=== PATIENT | male | born 1975 | race Caucasian/White ===

== ENCOUNTER 2020-01-19 15:21 | Inpatient (IN) | payer OTHER ==
[~2020-01-19 15:21] MED LIST: Iopamidol-370 76% 500 ML 1 ML ONE
[2020-01-19] MEDS ORDERED: cefTRIAXone\\ROCEPHIN 2 GM VIAL ONE (15:47)
[2020-01-19] MEDS ORDERED: Acetaminophen 500 MG TAB ONE (15:47)
--- NOTE | 2020-01-19 15:58 | RAD ---
PORTABLE CHEST: 01/19/20 PROVIDED CLINICAL HISTORY: Fever. FINDINGS: Cardiac and mediastinal silhouette is within normal limits. Consolidation is noted at the right lung apex. The left lung appears clear. There is no pleural fluid or pneumothorax apparent. IMPRESSION: Right upper lung zone consolidation, compatible with pneumonia. Follow-up is recommended. POS: ALEX
[2020-01-19 16:01] LABS: Mean Corpuscular HGB CONC 33.8 g/dL (32.0-36.0); Mean Corpuscular Hemoglobin 31.2 pg (27.0-31.0); Mean Corpuscular Volume 92.3 fL (78.0-98.0); Mean Platelet Volume 7.1 fL (7.4-10.4); Platelet Count 425 thou/uL (130-400); RBC Distribution Width 11.3 % (11.5-14.5); Red Blood Cell (RBC) Count 3.84 mill/uL (4.70-6.10); White Blood Cell (WBC) Count 21.8 thou/uL (4.8-10.8)
[2020-01-19 16:19] LABS: ALT (SGPT) 50 U/L (8-55); AST (SGOT) 37 U/L (5-34); Albumin 3.5 g/dL (3.5-5.0); Alkaline Phosphatase 221 U/L (40-110); Anion Gap 18 mmol/L (10-20); BUN (Urea Nitrogen) 14 mg/dL (8.9-20.6); CK (CPK) 63 U/L (30-200); Calc. Creatinine Clearance 0 mL/min (70-130); Carbon Dioxide 23 mmol/L (22-29); Chloride 96 mmol/L (98-107); Globulin 4.4 g/dL (2.4-3.5); Glucose 116 mg/dL (70-105); Lipase 18 U/L (8-78); Potassium 3.1 mmol/L (3.5-5.1); Protein, Total 7.9 g/dL (6.0-8.3); Sodium 134 mmol/L (136-145)
[2020-01-19 16:22] LABS: Band 16 % (5-11); Lymphocytes 4 % (21-51); MDiff Complete? YES; Monocytes 13 % (0-10); Neutrophil 67 % (42-75); Platelet Morphology Comment Appears Increased; Polychromasia SLIGHT = 2-3 cells (100X) (0-2/hpf); Toxic Granulation SLIGHT; Vacuoles SLIGHT
[2020-01-19] MEDS ORDERED: Potassium Chloride 20 MEQ TAB ONE (16:39)
[2020-01-19] MEDS ORDERED: Vancomycin 1 GM/200 ML BAG ONE (16:39)
--- NOTE | 2020-01-19 17:29 | CT ---
CT PULMONARY ANGIOGRAM WITH IV CONTRAST AND 3D MIP RECONSTRUCTIONS: 01/19/20 PROVIDED CLINICAL HISTORY: Cough. FINDINGS: There is a large cavitary process within the right upper lobe at the apex, measuring at least 9.4 cm in greatest transverse dimension and at least 7.3 cm in craniocaudal dimension. There is patchy surro unding ground glass opacity within the right upper lobe as well as in portions of the right middle lo be and right lower lobe. The left lung appears clear. There are multiple enlarged mediastinal and right hilar lymph nodes. There is no pleural fluid or pneumothorax apparent. The airway appears patent and of normal caliber. There is no evidence for central or segmental pulmonary embolus. The visualized portions of the upper abdomen appear unremarkable. The osseous structures demonstrate no concerning lytic or blastic lesion. IMPRESSION: 1. No evidence for central or segmental pulmonary embolus. 2. Cavitary mass within the right lung apex, infectious versus less likely malignant. Extensive surrounding ground glass opacity that may reflect hemorrhage or infectious pneumonitis. Patchy right middle lobe and right lower lobe air space disease that may reflect infectious pneumonitis. POS: ALEX
[2020-01-19] MEDS ORDERED: Bisacodyl 10 MG SUPP PR PRN (17:50)
[2020-01-19] MEDS ORDERED: Senokot S 8.6-50 MG TAB PO PRN (17:50)
[2020-01-19] MEDS ORDERED: Ondansetron PF 4 MG/2 ML Vial IVP PRN (17:50)
[2020-01-19] MEDS ORDERED: HYDROcodone/Acetaminophen 5/325 mg Tablet PO PRN (17:50)
[2020-01-19 18:16] LABS: Bilirubin Negative (Negative); Blood, Urine Negative (Negative); Clarity Clear (Clear); Glucose, Urine (Dipstick) Normal (Negative); Ketone, Urine Trace mg/dL (Negative); Leukocyte Negative Leu/uL (Negative); Nitrite Negative (Negative); Protein, Urine (Dipstick) 10 mg/dL (Neg-Trace); Specific Gravity, Urine 1.032 (1.002-1.036); Urobilinogen Normal mg/dL (Less than 2); pH, Urine 5.5 (5.0-9.0)
[2020-01-19] MEDS ORDERED: Azithromycin 500 MG VIAL ONE (18:23)
[2020-01-19 18:28] LABS: SARS-CoV-2 NAA Rapid Test Not Detected (NotDetected)
--- NOTE | 2020-01-19 18:31 | HP ---
REASON FOR ADMISSION: Right lung abscess. HISTORY OF PRESENTING ILLNESS: The patient gives history of having fever from last 11 days or so. This fever has been off and on with no particular relation to day or night. He also developed cough, which was initially dry from last 4 to 5 days. From yesterday, the patient started to have brown colored, foul smelling rotten egg smell sputum per patient. He has also had loss of appetite from last 3 days and has not been able to eat or drink much. Has no complaints of chest pain or palpitation. No prior history of lung infections as such. 25 years back, the patient has had pulmonary bleb rupture with subcutaneous emphysema and has had serial CAT scans x2 on a yearly basis. He was told he had asthma and likely bleb ruptured with a flare-up of his asthma. This was 25 years back. He has not had any surgical procedures for the same. He does not know if he is exposed to COVID, but he is a machine operator general for house remodeling. He has been to [place] more than four years ago. Has not been to detention or fdc facilities or residential in the past. Does not have any pets. PAST MEDICAL AND SURGICAL HISTORY: History of asthma, which is very mild and rarely uses his albuterol rescue inhaler. He has had right collarbone surgery when he was a child. CURRENT MEDICATIONS: Albuterol inhaler nebulizer p.r.n. ALLERGIES: TO ASPIRIN. PERSONAL HISTORY: Does not abuse alcohol or drugs. No history of smoking. Works as a machine operator general for house remodeling. FAMILY HISTORY: Both parents are living. Father was diagnosed with lung cancer 3 years back and he has had a lower lobe lobectomy done. He is apparently healthy now. Mother is healthy. The patient lives with his . CODE STATUS: Full. Power of senior attorney is his . REVIEW OF SYSTEMS: CONSTITUTIONAL: Negative for weight loss or gain, ability to conduct usual activities. SKIN: Negative for rash, itching. EYES: Negative for double vision, pain. ENT/MOUTH: Negative for nose bleeding, neck stiffness, pain, tenderness. CARDIOVASCULAR: Negative for palpitations, dyspnea on exertion, orthopnea. RESPIRATORY: Negative for shortness of breath, wheezing, cough, hemoptysis, fever or night sweats. GASTROINTESTINAL: Negative for poor appetite, abdominal pain, heartburn, nausea, vomiting, constipation, or diarrhea. GENITOURINARY: Negative for urgency, frequency, dysuria, nocturia. MUSCULOSKELETAL: Negative for pain, swelling. NEUROLOGIC/PSYCHIATRIC: Negative for anxiety, depression. ALLERGY/IMMUNOLOGIC: Negative for skin rash, bleeding tendency. PHYSICAL EXAMINATION: GENERAL: The patient is a 44-year-old male, who is currently not in any acute distress. VITAL SIGNS: Blood pressure 106/70, pulse 110 per minute, respiratory rate 18 per minute, temperature 99 degrees Fahrenheit, saturating 94% on room air. NECK: Supple. No elevated JVD. HEENT: Eyes; extraocular muscles intact. Pupils reacting to light. Oral cavity, mucous membranes are dry. No exudates or congestion. CARDIOVASCULAR SYSTEM: S1, S2 heard. Tachycardic. No murmur. RESPIRATORY SYSTEM: Air entry 1+ bilateral. Scattered rhonchi plus bilateral. Occasional wheezes plus bilateral. ABDOMEN: Soft. Bowel sounds heard. No tenderness, rigidity, or guarding. EXTREMITIES: No peripheral edema or calf tenderness. VASCULAR SYSTEM: Peripheral pulses 1+ bilateral. No ischemic ulcerations or gangrene. CENTRAL NERVOUS SYSTEM: No gross focal deficits noted. The patient is alert, awake, oriented well. PSYCHIATRIC SYSTEM: The patient's mood is euthymic. No hallucinations or delusions. LABORATORY DATA: CT angio of the chest done shows a large cavity in the right upper lobe measuring 9.4 x 7.3 cm and there is patchy surrounding ground-glass opacity seen in the right upper lobe and right middle lobe and lower lobe as well on the right side. No evidence of PE. White count is 21, H and H 12 and 35, platelet count 425 with 67% neutrophils, 16% bands. MCV is 92. D-dimer is 3.0. Potassium 3.1, serum bicarb 23, BUN 14, creatinine 1.0, serum glucose 116, AST 37, ALT 50, alkaline phosphatase 221, total bilirubin 1.0. BNP 30. Albumin is 3.5. Lipase 18. CLINICAL IMPRESSION AND PLAN: Patient will be admitted to medical floor for right lung abscess with sepsis. Blood cultures have been obtained in the ER. We will obtain sputum culture. He will be on cefepime, Levaquin, and vancomycin along with DuoNeb. Dr. Larson has been consulted by Dr. Choi in the ER. He has had a symptoms of cough and fever for last 11 days, which got worse from last 2 days with foul smelling sputum from yesterday evening. We will also obtain an echo, covid PCR. We will gently hydrate him for a total of 2 L and re-evaluate if needed. We will continue to closely monitor him on medical floor. Job ID: [id number] [facility]
[2020-01-19 19:39] LABS: Alcohol Less than 10 mg/dL (Less than 10); Salicylate Less than 8.0 mg/dL (15.0-30.0)
[2020-01-19] MEDS: Sodium Chloride 0.9% 1,000 ML IV SCH (19:41)
[2020-01-19] MEDS ORDERED: Famotidine 20 MG TAB ONE (20:20)
[2020-01-19] MEDS: Famotidine 20 MG TAB PO SCH (20:32)
[2020-01-19] MEDS ORDERED: Vancomycin HCl 1 GM in Sodium Chloride 0.9% 250 ML 300 ML IVPB SCH (21:00)
[2020-01-19] MEDS: Cefepime 1 GM in Sodium Chloride 0.9% 100 ML IVPB SCH (21:38)
[2020-01-19] MEDS ORDERED: Cefepime 1 GM VIAL ONE (21:39)
[2020-01-19 21:40] LABS: HBSAg Index 0.22 S/CO (0-0.99); Hep B Surf Ag Non-Reactive S/CO (NonReactive); Hep C IgG Ab Non-Reactive (NonReactive); Hep C Index 0.07 S/CO (0-0.79)
[2020-01-19 21:41] LABS: Hep A IgM AB Non-Reactive (NonReactive); Hep A IgM S/CO 0.21 S/CO (0-0.79)
[2020-01-19 21:47] LABS: HBCM Index 0.06 S/CO (0-0.79); Hepatitis B Core IgM Abs Non-Reactive (NonReactive)
[2020-01-19 21:52] LABS: HIV (1/2) Antibody/Antigen Non-Reactive (NonReactive); HIV 1/2 INDEX 0.11 S/CO (<1.00)
[2020-01-19 22:29] VITALS: BMI 29.9
[2020-01-19 22:52] LABS: Amphetamine Not Detected (NotDetected); Barbiturates Screen Not Detected (NotDetected); Benzodiazepine Screen Not Detected (NotDetected); Cocaine Metabolite Screen Not Detected (NotDetected); Medtox Control Line Valid? VALID (VALID); Medtox Reader # READER 4; Methadone Not Detected (NotDetected); Methamphetamine Not Detected (NotDetected); Opiate Screen Not Detected (NotDetected); Oxycodone Screen Not Detected (NotDetected); Phencyclidine (PCP) Not Detected (NotDetected); THC/Cannabinoid Screen Not Detected (NotDetected); Tricyclic Screen Not Detected (NotDetected)
[2020-01-19 22:58] LABS: Legionella Urinary Ag Negative (Negative); Strep pneumo Urine Ag NEGATIVE (NEGATIVE)
[2020-01-20] MEDS ORDERED: Vancomycin 1.5 GRAM/300 ML BAG 1.5 GM in Premix Bag 1 BAG IVPB SCH (05:00)
[2020-01-20] MEDS: Sodium Chloride 0.9% 1,000 ML IV SCH (05:32)
[2020-01-20] MEDS: Acetaminophen 325 MG TAB PO PRN ×2 (06:42→16:39)
[2020-01-20 06:57] LABS: #Eosinphils 0.1 thou/uL (0.0-0.7); #Monocytes 1.6 thou/uL (0.11-0.59); #Neutrophils 14.6 thou/uL (1.40-6.50); %Basophils 0.1 % (0.0-1.0); %Eosinophils 0.3 % (0.0-10.0); %Lymphocytes 5.9 % (21.0-51.0); %Monocytes 9.3 % (0.0-10.0); %Neutrophils 84.5 % (42.0-75.0); Hemoglobin 10.6 g/dL (14.0-18.0); Mean Corpuscular HGB CONC 33.5 g/dL (32.0-36.0); Mean Corpuscular Hemoglobin 31.3 pg (27.0-31.0); Mean Corpuscular Volume 93.4 fL (78.0-98.0); Platelet Count 362 thou/uL (130-400); RBC Distribution Width 11.3 % (11.5-14.5); Red Blood Cell (RBC) Count 3.39 mill/uL (4.70-6.10); White Blood Cell (WBC) Count 17.3 thou/uL (4.8-10.8)
[2020-01-20 07:18] LABS: ALT (SGPT) 37 U/L (8-55); AST (SGOT) 26 U/L (5-34); Albumin 2.8 g/dL (3.5-5.0); Alkaline Phosphatase 164 U/L (40-110); Anion Gap 15 mmol/L (10-20); BUN (Urea Nitrogen) 9 mg/dL (8.9-20.6); Bilirubin, Total 0.6 mg/dL (0.2-1.2); Calc. Creatinine Clearance 163 mL/min (70-130); Calcium 7.9 mg/dL (7.8-10.44); Carbon Dioxide 20 mmol/L (22-29); Chloride 102 mmol/L (98-107); Globulin 3.5 g/dL (2.4-3.5); Glucose 116 mg/dL (70-105); Potassium 3.4 mmol/L (3.5-5.1); Protein, Total 6.3 g/dL (6.0-8.3); Sodium 134 mmol/L (136-145)
[2020-01-20] MEDS: Cefepime 1 GM in Sodium Chloride 0.9% 100 ML IVPB SCH (07:49)
[2020-01-20] MEDS: Famotidine 20 MG TAB PO SCH ×2 (07:50→19:47)
[2020-01-20] MEDS: Enoxaparin Sodium 40 MG/0.4 ML SYRINGE SC SCH (07:50)
--- NOTE | 2020-01-20 14:22 | CON ---
DATE OF CONSULTATION: 01/20/2020 HISTORY OF PRESENT ILLNESS: Mr. Del Angel is a very pleasant 44-year-old male. He says he has been feeling bad for least 2 weeks. He has had bad breath and a nasty taste in his mouth, he has noticed as well when he coughs up sputum. He has a long history of awakening at night with bile or gastric contents in his mouth, making him jump up to run into the bathroom to spit it out. He says this only happens every 6 to 8 months, but it does happen. He is unaware if this is happening intermittently during the sleep as expected. He does not elevate the head of his bed. He has been taking Prilosec and says a lot of his painful reflux issues got better when he started taking Prilosec on a daily basis. He has never been scoped, but his mother and father both have issues with esophageal strictures. He is diagnosed with a necrotizing upper lobe pneumonia. I was consulted to assist in his management. PAST MEDICAL HISTORY: Otherwise, unremarkable. He is a nonsmoker and nondrinker. He has had asthma since he was young. Twenty-five years ago, he tells me he was hospitalized in [place] for a week. It sounds like he had a pneumomediastinum. He was seen in the ER for asthma, sent home, and then called back the next day and watched for a week with serial x-rays. He had subcu air in his neck. He is followed with serial CT's for some reason. FAMILY HISTORY: Negative for lung disease, otherwise in early age. His father was diagnosed with lung cancer and had a lower lobectomy for that. His father quit smoking over 30 years ago. REVIEW OF SYSTEMS: Otherwise, negative. PHYSICAL EXAMINATION: GENERAL: He is a very pleasant gentleman, coughing frequently. His is at bedside. VITAL SIGNS: His temp since he has been in the hospital has been not higher than 99.2. HEENT: Pupils are equal. Sclerae are anicteric. NECK: Supple. LUNGS: Clear and distant. HEART: Regular rhythm. ABDOMEN: Soft and nontender. EXTREMITIES: Without clubbing, cyanosis, or edema. Oximetry is 95% on room air. IMPRESSION: Necrotizing upper lobe pneumonia, most likely related to nocturnal reflux and aspiration. I suspect this is predominantly anaerobes and gram negatives. Once his blood cultures come back negative, we can simplify his antimicrobial therapy. He will probably need to be in the hospital for least 3 days, getting IV antimicrobial therapy. Vancomycin can be discontinued as this is extremely unlikely to be a staphylococcal process. It would not be unreasonable to rule out a stricture while he is here. I will discuss with Gastroenterology in the morning. There is no reason to consult them on weekend. This is a 70 min consult with greater than 50% of the time spent on the unit with coordination of care. Job ID: [id number] [facility]GAN
--- NOTE | 2020-01-20 15:36 | PDOC.HOSPP ---
- Subjective Encounter Date: 01/20/20 Encounter Time: 15:35 Subjective: f/u for RUL PNA/abscess likely due to GERD receiving Cefepime/Levaquin and remaining on RA. - Objective Vital Signs & Weight: Vital Signs (12 hours) Temp Pulse Resp BP BP Pulse Ox 01/20/20 14:49 103 H 20 93 L 01/20/20 12:00 98.2 F 97 18 112/72 97 01/20/20 08:00 95 01/20/20 07:56 99.2 F 102 H 16 114/70 95 01/20/20 07:48 104 H 20 95 01/20/20 04:16 99.2 F 117 H 20 120/70 92 L Weight Weight 221 lb 2 oz I&O: 01/19/20 01/20/20 01/21/20 06:59 06:59 06:59 Intake Total 1280 Balance 1280 Result Diagrams: 01/20/20 06:27 01/20/20 06:27 Additional Labs: Microbiology 01/19/20 Unknown Nasopharyngeal swab Respiratory Virus Panel (PCR) - Final 01/19/20 17:15 Nasal swab Influenza Types A,B Direct EIA - Final 01/20/20 05:00 Sputum Respiratory Culture - Preliminary 01/19/20 15:42 Venous blood - Right Arm Blood Culture - Preliminary Specimen has been received and culture in progress. No Growth to date. 01/19/20 15:24 Venous blood - Left Hand Blood Culture - Preliminary Specimen has been received and culture in progress. No Growth to date. Laboratory Tests 01/19/20 01/19/20 01/19/20 15:42 15:42 15:42 WBC 21.8 H Hgb 12.0 L Plt Count 425 H Band Neuts % (Manual) 16 H D-Dimer Sodium 134 L Potassium 3.1 L B-Natriuretic Peptide 30.3 Lipase 18 Hepatitis A IgM Ab Hep Bs Antigen Hep B Core IgM Ab Hepatitis C Antibody HIV 1&2 Antigen & Ab Ur L.pneumophila Ag SARS-CoV-2 Rap RNA(RT-PCR) Ur Strep pneumoniae Ag 01/19/20 01/19/20 01/19/20 15:42 17:15 17:42 WBC Hgb Plt Count Band Neuts % (Manual) D-Dimer 3.06 H Sodium Potassium B-Natriuretic Peptide Lipase Hepatitis A IgM Ab Hep Bs Antigen Hep B Core IgM Ab Hepatitis C Antibody HIV 1&2 Antigen & Ab Ur L.pneumophila Ag Negative SARS-CoV-2 Rap RNA(RT-PCR) Not Detected Ur Strep pneumoniae Ag NEGATIVE 01/19/20 19:07 WBC Hgb Plt Count Band Neuts % (Manual) D-Dimer Sodium Potassium B-Natriuretic Peptide Lipase Hepatitis A IgM Ab Non-Reactive Hep Bs Antigen Non-Reactive Hep B Core IgM Ab Non-Reactive Hepatitis C Antibody Non-Reactive HIV 1&2 Antigen & Ab Non-Reactive Ur L.pneumophila Ag SARS-CoV-2 Rap RNA(RT-PCR) Ur Strep pneumoniae Ag Radiology Reviewed by me: Yes (CTA chest - RUL cavitary process/consolidation) Hospitalist ROS - Medication Medications: Active Medications Generic Name Dose Route Start Last Admin Trade Name Freq PRN Reason Stop Dose Admin Acetaminophen 650 mg 01/19/20 17:50 01/20/20 06:42 Acetaminophen 325 Mg Tab PO 650 mg Q4H PRN Administration Headache/Fever/Mild Pain (1-3) Albuterol/Ipratropium 3 ml 01/19/20 19:00 01/20/20 14:49 Ipratropium/Albuterol Sulfate 3 Ml Neb NEB 3 ml [id number] KATT Administration Enoxaparin Sodium 40 mg 01/20/20 09:00 01/20/20 07:50 Enoxaparin Sodium 40 Mg/0.4 Ml Syringe SC 40 mg 0900 KATT Administration Famotidine 20 mg 01/19/20 21:00 01/20/20 07:50 Famotidine 20 Mg Tab PO 20 mg BID KATT Administration Cefepime HCl 1 gm/ Sodium 100 mls @ 200 mls/hr 01/19/20 21:00 01/20/20 07:49 Chloride IVPB 100 mls Q12HR KATT Administration Levofloxacin 500 mg/ Device 100 mls @ 100 mls/hr 01/19/20 18:00 01/19/20 23:03 IVPB Not Given Q24HR KATT - Exam General Appearance: NAD, awake alert Eye: PERRL, anicteric sclera ENT: normocephalic atraumatic, no oropharyngeal lesions Neck: supple, symmetric, no JVD, no thyromegaly, no lymphadenopathy Heart: RRR, no murmur, no gallops, no rubs, normal peripheral pulses Heart - other findings: S1, S2 Respiratory: no wheezes, normal chest expansion, no tachypnea Respiratory - other findings: coarse sounds in R field, diminised in R base Gastrointestinal: soft, non-tender, non-distended, normal bowel sounds, no palpable masses Extremities: no cyanosis, no clubbing, no edema Skin: normal turgor, no lesions, no rashes Neurological: cranial nerve grossly intact, no new deficit Musculoskeletal: normal tone, normal strength, no muscle wasting Psychiatric: normal affect, A&O x 3 Hosp A/P (1) Cavitary pneumonia Code(s): J18.9 - PNEUMONIA, UNSPECIFIED ORGANISM; J98.4 - OTHER DISORDERS OF LUNG Status: Acute Plan: Likely component of reflux-associated PNA now with abscess RUL, continue Cefepime/Levaquin, likely will need EGD and potential bronchoscopy (2) Sepsis due to pneumonia Code(s): J18.9 - PNEUMONIA, UNSPECIFIED ORGANISM; A41.9 - SEPSIS, UNSPECIFIED ORGANISM Status: Acute Plan: See above for antimicrobial regimen, continue general sepsis protocol (3) Hyponatremia Code(s): E87.1 - HYPO-OSMOLALITY AND HYPONATREMIA Status: Acute Plan: Likely due to #1, encourage increased po intake and regular diet (4) Hypokalemia Code(s): E87.6 - HYPOKALEMIA Status: Acute Plan: KCL supplementation, serial K+ monitoring - Plan continue antibiotics, social worker delinquency prevention, respiratory therapy, DVT proph w/SCDs Continue Cefepime/Levaquin General pulmonary supportive mgmt Appreciated Pulmonolgy assistance Likely will need EGD, potential bronchoscopy Await final sputum cx results AM lab: CMP, CBC
[2020-01-20] MEDS: Cefepime 2 GM in Sodium Chloride 0.9% 100 ML IVPB SCH (19:47)
[2020-01-21] MEDS: Acetaminophen 325 MG TAB PO PRN ×2 (00:25→11:45)
[2020-01-21 06:45] LABS: Band 20 % (5-11); Hemoglobin 11.2 g/dL (14.0-18.0); Lymphocytes 7 % (21-51); MDiff Complete? YES; Mean Corpuscular HGB CONC 33.3 g/dL (32.0-36.0); Mean Corpuscular Hemoglobin 31.2 pg (27.0-31.0); Mean Corpuscular Volume 93.5 fL (78.0-98.0); Mean Platelet Volume 7.2 fL (7.4-10.4); Metamyelocyte 2 % (0-0); Monocytes 6 % (0-10); Neutrophil 65 % (42-75); Platelet Count 431 thou/uL (130-400); Platelet Morphology Comment Appears Increased; RBC Distribution Width 11.4 % (11.5-14.5); Red Blood Cell (RBC) Count 3.59 mill/uL (4.70-6.10); White Blood Cell (WBC) Count 20.9 thou/uL (4.8-10.8)
[2020-01-21 06:49] LABS: ALT (SGPT) 40 U/L (8-55); AST (SGOT) 30 U/L (5-34); Albumin 3.1 g/dL (3.5-5.0); Alkaline Phosphatase 176 U/L (40-110); Anion Gap 18 mmol/L (10-20); BUN (Urea Nitrogen) 7 mg/dL (8.9-20.6); Bilirubin, Total 0.6 mg/dL (0.2-1.2); Calc. Creatinine Clearance 168 mL/min (70-130); Calcium 8.5 mg/dL (7.8-10.44); Carbon Dioxide 20 mmol/L (22-29); Chloride 100 mmol/L (98-107); Globulin 4.1 g/dL (2.4-3.5); Glucose 103 mg/dL (70-105); Potassium 3.1 mmol/L (3.5-5.1); Protein, Total 7.2 g/dL (6.0-8.3); Sodium 135 mmol/L (136-145)
[2020-01-21] MEDS: Enoxaparin Sodium 40 MG/0.4 ML SYRINGE SC SCH (08:14)
[2020-01-21] MEDS: Guaifenesin DM 100-10/5 ML UDCUP PO PRN (08:14)
[2020-01-21] MEDS: Famotidine 20 MG TAB PO SCH (08:14)
[2020-01-21] MEDS: Cefepime 2 GM in Sodium Chloride 0.9% 100 ML IVPB SCH ×2 (08:14→21:30)
[2020-01-21] MEDS ORDERED: predniSONE 20 MG TAB PO SCH (12:30)
--- NOTE | 2020-01-21 12:50 | PRG ---
DATE OF SERVICE: 01/21/2020 OBJECTIVE: VITAL SIGNS: The patient is afebrile. Temperature was 100 today, was 103.1 yesterday afternoon at 5:00; oximetry is 96% to 97% on room air; blood pressure 126/72. LUNGS: He is not wheezing. HEART: Regular rhythm. ABDOMEN: Soft. IMPRESSION AND PLAN: Lung abscess, likely created by nocturnal aspiration. He has a significant problem with reflux and sleeps on his right side, which explained in the right upper lobe infiltrate. I would also explain his foul breath and bad taste associated with that. I would expect to be febrile for several days. We will continue IV antibiotics until he is afebrile, then probably switch to Augmentin. He is unsure if he is allergic to aspirin, but his mother told him when he was young with his asthma, he should not take aspirin. Surprisingly, his asthma has not been active with this infection. Job ID: [id number]
--- NOTE | 2020-01-21 16:04 | PDOC.HOSPP ---
- Subjective Encounter Date: 01/21/20 Encounter Time: 16:00 Subjective: f/u for R lung abscess on current Cefepime. Feels weak and slept poorly overnight due to anxiety and illness. Tmax 103F. - Objective Vital Signs & Weight: Vital Signs (12 hours) Temp Pulse Resp BP Pulse Ox 01/21/20 14:02 101 H 18 96 01/21/20 11:33 100.0 F H 106 H 18 126/72 97 01/21/20 08:00 96 01/21/20 07:30 98.8 F 91 20 128/81 96 01/21/20 07:08 111 H 18 95 01/21/20 06:00 98 F Weight Weight 221 lb 2 oz I&O: 01/20/20 01/21/20 01/22/20 06:59 06:59 06:59 Intake Total 1280 3080 Output Total 650 Balance 1280 2430 Result Diagrams: 01/21/20 05:50 01/21/20 05:50 Additional Labs: Microbiology 01/19/20 Unknown Nasopharyngeal swab Respiratory Virus Panel (PCR) - Final 01/19/20 17:15 Nasal swab Influenza Types A,B Direct EIA - Final 01/20/20 05:00 Sputum Respiratory Culture - Preliminary 01/20/20 05:00 Sputum Respiratory Culture - Preliminary 01/19/20 15:42 Venous blood - Right Arm Blood Culture - Preliminary Specimen has been received and culture in progress. No Growth to date. 01/19/20 15:42 Venous blood - Right Arm Blood Culture - Preliminary NO GROWTH AT 48 HOURS 01/19/20 15:24 Venous blood - Left Hand Blood Culture - Preliminary Specimen has been received and culture in progress. No Growth to date. 01/19/20 15:24 Venous blood - Left Hand Blood Culture - Preliminary NO GROWTH AT 48 HOURS Laboratory Tests 01/19/20 01/19/20 01/19/20 15:42 15:42 15:42 WBC 21.8 H Hgb 12.0 L Plt Count 425 H Band Neuts % (Manual) 16 H D-Dimer Sodium 134 L Potassium 3.1 L B-Natriuretic Peptide 30.3 Lipase 18 Hepatitis A IgM Ab Hep Bs Antigen Hep B Core IgM Ab Hepatitis C Antibody HIV 1&2 Antigen & Ab Ur L.pneumophila Ag SARS-CoV-2 Rap RNA(RT-PCR) Ur Strep pneumoniae Ag 01/19/20 01/19/20 01/19/20 15:42 17:15 17:42 WBC Hgb Plt Count Band Neuts % (Manual) D-Dimer 3.06 H Sodium Potassium B-Natriuretic Peptide Lipase Hepatitis A IgM Ab Hep Bs Antigen Hep B Core IgM Ab Hepatitis C Antibody HIV 1&2 Antigen & Ab Ur L.pneumophila Ag Negative SARS-CoV-2 Rap RNA(RT-PCR) Not Detected Ur Strep pneumoniae Ag NEGATIVE 01/19/20 19:07 WBC Hgb Plt Count Band Neuts % (Manual) D-Dimer Sodium Potassium B-Natriuretic Peptide Lipase Hepatitis A IgM Ab Non-Reactive Hep Bs Antigen Non-Reactive Hep B Core IgM Ab Non-Reactive Hepatitis C Antibody Non-Reactive HIV 1&2 Antigen & Ab Non-Reactive Ur L.pneumophila Ag SARS-CoV-2 Rap RNA(RT-PCR) Ur Strep pneumoniae Ag Hospitalist ROS - Medication Medications: Active Medications Generic Name Dose Route Start Last Admin Trade Name Freq PRN Reason Stop Dose Admin Acetaminophen 650 mg 01/19/20 17:50 01/21/20 11:45 Acetaminophen 325 Mg Tab PO 650 mg Q4H PRN Administration Headache/Fever/Mild Pain (1-3) Albuterol/Ipratropium 3 ml 01/19/20 19:00 01/21/20 14:02 Ipratropium/Albuterol Sulfate 3 Ml Neb NEB 3 ml [id number] KATT Administration Enoxaparin Sodium 40 mg 01/20/20 09:00 01/21/20 08:14 Enoxaparin Sodium 40 Mg/0.4 Ml Syringe SC 40 mg 0900 KATT Administration Famotidine 20 mg 01/19/20 21:00 01/21/20 08:14 Famotidine 20 Mg Tab PO 20 mg BID KATT Administration Guaifenesin/Dextromethorphan 15 ml 01/19/20 17:50 01/21/20 08:14 Guaifenesin Dm 100-10/5 Ml Udcup PO 15 ml Q4H PRN Administration Cough Cefepime HCl 2 gm/ Sodium 100 mls @ 200 mls/hr 01/20/20 21:00 01/21/20 08:14 Chloride IVPB 100 mls Q12HR KATT Administration - Exam General Appearance: NAD, awake alert Eye: PERRL, anicteric sclera ENT: normocephalic atraumatic, no oropharyngeal lesions Neck: supple, symmetric, no JVD, no thyromegaly, no lymphadenopathy Heart: RRR, no murmur, no gallops, no rubs, normal peripheral pulses Respiratory: normal chest expansion, no tachypnea Respiratory - other findings: few wheezes of R lung field Gastrointestinal: soft, non-tender, non-distended, normal bowel sounds, no palpable masses Extremities: no cyanosis, no clubbing, no edema Skin: normal turgor, no lesions Neurological: cranial nerve grossly intact, no new deficit Musculoskeletal: normal tone, normal strength, no muscle wasting Psychiatric: normal affect, A&O x 3 Hosp A/P (1) Cavitary pneumonia Code(s): J18.9 - PNEUMONIA, UNSPECIFIED ORGANISM; J98.4 - OTHER DISORDERS OF LUNG Status: Acute Plan: Continue Cefepime, may need bronchoscopy if slow clinical improved, EGD pending in context of likely GERD component (2) Sepsis due to pneumonia Code(s): J18.9 - PNEUMONIA, UNSPECIFIED ORGANISM; A41.9 - SEPSIS, UNSPECIFIED ORGANISM Status: Acute Plan: Improved, continue IV Cefepime, IVF's (3) Hyponatremia Code(s): E87.1 - HYPO-OSMOLALITY AND HYPONATREMIA Status: Acute Plan: Slow improvement, continue low-volume IVF's (4) Hypokalemia Code(s): E87.6 - HYPOKALEMIA Status: Acute Plan: Mild, KCL 40meq BID, repeat K+ level in am (5) GERD (gastroesophageal reflux disease) Code(s): K21.9 - GASTRO-ESOPHAGEAL REFLUX DISEASE WITHOUT ESOPHAGITIS Status: Chronic Plan: Plan for EGD, start Protonix 40mg po daily - Plan plan discussed w/ family, continue antibiotics, secondary social studies teacher, out of bed/ambulate, DVT proph w/SCDs Continue Cefepime General pulmonary supportive mgmt Appreciated Pulmonolgy assistance Likely will need EGD, potential bronchoscopy Sputum cx showing normal niles KCL 40meq BID Add Mucinex DM BID AM lab: CMP, CBC
[2020-01-21] MEDS ORDERED: Potassium Chloride 20 MEQ TAB PO SCH (16:15)
[2020-01-21] MEDS: Saccharomyces boulardii 250 MG CAP PO SCH (16:55)
[2020-01-21] MEDS: Melatonin 3 MG TAB PO PRN (21:31)
[2020-01-21] MEDS: guaiFENesin/DM ER PO SCH (21:31)
[2020-01-22 06:45] LABS: #Eosinphils 0.1 thou/uL (0.0-0.7); #Lymphocytes 1.3 thou/uL (1.20-3.40); #Monocytes 1.3 thou/uL (0.11-0.59); #Neutrophils 14.4 thou/uL (1.40-6.50); %Basophils 0.1 % (0.0-1.0); %Eosinophils 0.4 % (0.0-10.0); %Lymphocytes 7.4 % (21.0-51.0); %Monocytes 7.7 % (0.0-10.0); %Neutrophils 84.4 % (42.0-75.0); Hemoglobin 10.5 g/dL (14.0-18.0); Mean Corpuscular HGB CONC 33.5 g/dL (32.0-36.0); Mean Corpuscular Hemoglobin 31.1 pg (27.0-31.0); Mean Corpuscular Volume 92.8 fL (78.0-98.0); Mean Platelet Volume 6.7 fL (7.4-10.4); Platelet Count 398 thou/uL (130-400); RBC Distribution Width 11.4 % (11.5-14.5); Red Blood Cell (RBC) Count 3.36 mill/uL (4.70-6.10)
[2020-01-22 07:09] LABS: ALT (SGPT) 62 U/L (8-55); AST (SGOT) 77 U/L (5-34); Alkaline Phosphatase 152 U/L (40-110); Anion Gap 13 mmol/L (10-20); BUN (Urea Nitrogen) 9 mg/dL (8.9-20.6); Bilirubin, Total 0.5 mg/dL (0.2-1.2); Calc. Creatinine Clearance 186 mL/min (70-130); Calcium 8.5 mg/dL (7.8-10.44); Carbon Dioxide 24 mmol/L (22-29); Chloride 103 mmol/L (98-107); Glucose 109 mg/dL (70-105); Potassium 3.4 mmol/L (3.5-5.1); Sodium 137 mmol/L (136-145)
[2020-01-22] MEDS: predniSONE 20 MG TAB PO SCH (08:28)
[2020-01-22] MEDS: Potassium Chloride 20 MEQ TAB PO SCH ×2 (08:28→16:57)
[2020-01-22] MEDS: Cefepime 2 GM in Sodium Chloride 0.9% 100 ML IVPB SCH ×2 (08:29→21:04)
[2020-01-22] MEDS: guaiFENesin/DM ER PO SCH ×2 (08:29→21:05)
[2020-01-22] MEDS: Enoxaparin Sodium 40 MG/0.4 ML SYRINGE SC SCH (09:35)
[2020-01-22] MEDS: Guaifenesin DM 100-10/5 ML UDCUP PO PRN ×2 (09:35→15:25)
--- NOTE | 2020-01-22 11:43 | PDOC.HOSPP ---
- Subjective Encounter Date: 01/22/20 Encounter Time: 11:40 Subjective: f/u for R lung abscess/cavitary region on current Cefepime/Prednisone. Suspicion for reflux and aspiration as underlying etiology. - Objective Vital Signs & Weight: Vital Signs (12 hours) Temp Pulse Resp BP BP Pulse Ox 01/22/20 11:05 99.3 F 94 20 120/77 94 L 01/22/20 08:00 93 L 01/22/20 07:36 98.5 F 94 20 115/73 93 L 01/22/20 07:33 94 14 95 01/22/20 00:24 95 12 01/21/20 23:57 98.8 F 95 20 115/74 93 L Weight Weight 221 lb 2 oz I&O: 01/21/20 01/22/20 01/23/20 06:59 06:59 06:59 Intake Total 3080 580 Output Total 650 Balance 2430 580 Result Diagrams: 01/22/20 06:30 01/22/20 06:30 Additional Labs: Microbiology 01/19/20 Unknown Nasopharyngeal swab Respiratory Virus Panel (PCR) - Final 01/19/20 17:15 Nasal swab Influenza Types A,B Direct EIA - Final 01/20/20 05:00 Sputum Respiratory Culture - Preliminary 01/20/20 05:00 Sputum Respiratory Culture - Preliminary 01/19/20 15:42 Venous blood - Right Arm Blood Culture - Preliminary Specimen has been received and culture in progress. No Growth to date. 01/19/20 15:42 Venous blood - Right Arm Blood Culture - Preliminary NO GROWTH AT 48 HOURS 01/19/20 15:24 Venous blood - Left Hand Blood Culture - Preliminary Specimen has been received and culture in pr ogress. No Growth to date. 01/19/20 15:24 Venous blood - Left Hand Blood Culture - Preliminary NO GROWTH AT 48 HOURS Laboratory Tests 01/19/20 01/19/20 01/19/20 15:42 15:42 15:42 WBC 21.8 H Hgb 12.0 L Plt Count 425 H Band Neuts % (Manual) 16 H D-Dimer Sodium 134 L Potassium 3.1 L B-Natriuretic Peptide 30.3 Lipase 18 Hepatitis A IgM Ab Hep Bs Antigen Hep B Core IgM Ab Hepatitis C Antibody HIV 1&2 Antigen & Ab Ur L.pneumophila Ag SARS-CoV-2 Rap RNA(RT-PCR) Ur Strep pneumoniae Ag 01/19/20 01/19/20 01/19/20 15:42 17:15 17:42 WBC Hgb Plt Count Band Neuts % (Manual) D-Dimer 3.06 H Sodium Potassium B-Natriuretic Peptide Lipase Hepatitis A IgM Ab Hep Bs Antigen Hep B Core IgM Ab Hepatitis C Antibody HIV 1&2 Antigen & Ab Ur L.pneumophila Ag Negative SARS-CoV-2 Rap RNA(RT-PCR) Not Detected Ur Strep pneumoniae Ag NEGATIVE 01/19/20 19:07 WBC Hgb Plt Count Band Neuts % (Manual) D-Dimer Sodium Potassium B-Natriuretic Peptide Lipase Hepatitis A IgM Ab Non-Reactive Hep Bs Antigen Non-Reactive Hep B Core IgM Ab Non-Reactive Hepatitis C Antibody Non-Reactive HIV 1&2 Antigen & Ab Non-Reactive Ur L.pneumophila Ag SARS-CoV-2 Rap RNA(RT-PCR) Ur Strep pneumoniae Ag Hospitalist ROS - Medication Medications: Active Medications Generic Name Dose Route Start Last Admin Trade Name Freq PRN Reason Stop Dose Admin Acetaminophen 650 mg 01/19/20 17:50 01/21/20 11:45 Acetaminophen 325 Mg Tab PO 650 mg Q4H PRN Administration Headache/Fever/Mild Pain (1-3) Albuterol/Ipratropium 3 ml 01/19/20 19:00 01/22/20 07:33 Ipratropium/Albuterol Sulfate 3 Ml Neb NEB 3 ml [id number] KATT Administration Enoxaparin Sodium 40 mg 01/20/20 09:00 01/22/20 09:35 Enoxaparin Sodium 40 Mg/0.4 Ml Syringe SC 40 mg 0900 KATT Administration Guaifenesin/Dextromethorphan 15 ml 01/19/20 17:50 01/22/20 09:35 Guaifenesin Dm 100-10/5 Ml Udcup PO 15 ml Q4H PRN Administration Cough Guaifenesin/Dextromethorphan 1 tab 01/21/20 21:00 01/22/20 08:29 Guaifenesin/Dm Er PO 1 tab Q12HR KATT Administration Cefepime HCl 2 gm/ Sodium 100 mls @ 200 mls/hr 01/20/20 21:00 01/22/20 08:29 Chloride IVPB 100 mls Q12HR KATT Administration Melatonin 9 mg 01/21/20 16:48 01/21/20 21:31 Melatonin 3 Mg Tab PO 9 mg HSPRN PRN Administration Insomnia Pantoprazole Sodium 40 mg 01/22/20 09:00 01/22/20 08:28 Pantoprazole 40 Mg Tab PO 40 mg DAILY KATT Administration Potassium Chloride 40 meq 01/22/20 08:00 01/22/20 08:28 Potassium Chloride 20 Meq Tab PO 40 meq BID-WM KATT Administration Prednisone 20 mg 01/22/20 08:00 01/22/20 08:28 Prednisone 20 Mg Tab PO 20 mg QAM-WM KATT Administration Saccharomyces Boulardii 250 mg 01/21/20 17:00 01/21/20 16:55 Saccharomyces Boulardii 250 Mg Cap PO 250 mg 1700 KATT Administration - Exam General Appearance: NAD, awake alert Eye: PERRL, anicteric sclera ENT: normocephalic atraumatic, no oropharyngeal lesions Neck: supple, symmetric, no JVD, no thyromegaly, no lymphadenopathy Heart: RRR, no murmur, no gallops, no rubs, normal peripheral pulses Heart - other findings: S1, S2 Respiratory: no tachypnea Respiratory - other findings: R-sided coarse sounds, few wheezes, diminished in base Gastrointestinal: soft, non-tender, non-distended, normal bowel sounds, no palpable masses Extremities: no cyanosis, no clubbing, no edema Skin: normal turgor Neurological: cranial nerve grossly intact, no new deficit Musculoskeletal: normal tone, normal strength, no muscle wasting Psychiatric: normal affect, A&O x 3 Hosp A/P (1) Cavitary pneumonia Code(s): J18.9 - PNEUMONIA, UNSPECIFIED ORGANISM; J98.4 - OTHER DISORDERS OF LUNG Status: Acute Plan: Suspect due to aspiration from GERD, continue Cefepime, ? GI evaluation, continue general pulm support (2) Sepsis due to pneumonia Code(s): J18.9 - PNEUMONIA, UNSPECIFIED ORGANISM; A41.9 - SEPSIS, UNSPECIFIED ORGANISM Status: Acute Plan: Improved, continue IV Cefepime (3) Hyponatremia Code(s): E87.1 - HYPO-OSMOLALITY AND HYPONATREMIA Status: Acute Plan: Resolving, continue supportive mgmt (4) Hypokalemia Code(s): E87.6 - HYPOKALEMIA Status: Acute Plan: Improved, continue serial monitoring (5) GERD (gastroesophageal reflux disease) Code(s): K21.9 - GASTRO-ESOPHAGEAL REFLUX DISEASE WITHOUT ESOPHAGITIS Status: Chronic Plan: Continue Protonix 40mg po daily - Plan plan discussed w/ family, continue antibiotics, out of bed/ambulate, DVT proph w/SCDs Continue Cefepime General pulmonary supportive mgmt Appreciated Pulmonolgy assistance Likely will need EGD, potential bronchoscopy Sputum cx showing normal nlies KCL 40meq BID Add Mucinex DM BID Trial Melatonin 9mg HS AM lab: CMP, CBC
--- NOTE | 2020-01-22 16:30 | PRG ---
DATE OF SERVICE: 01/22/2020 SUBJECTIVE: Ishaan Del Angel says he is feeling little better. He has not had a fever since the . His temperature maximum yesterday morning was 100. He has been afebrile since. OBJECTIVE: LUNGS: Unchanged. HEART: Unchanged. ABDOMEN: Unchanged. LABORATORY DATA: White count 17, hemoglobin 10, platelets 398. Electrolytes are unremarkable. AST 77, ALT 52, alkaline phosphatase 152, albumin is 3. He had no protein in his urine. COVID screen is negative. I am not sure why drug screen was done, but it was negative. IMPRESSION AND PLAN: Aspiration mediated lung abscess secondary to nocturnal reflux most likely. Gastroenterology was seen. He will likely have endoscopy prior to discharge. I will continue with IV antimicrobials until he is discharged. Follow him closely as an outpatient. Job ID: [id number]
[2020-01-22] MEDS: Saccharomyces boulardii 250 MG CAP PO SCH (16:57)
[2020-01-22] MEDS: Melatonin 3 MG TAB PO PRN (21:06)
[2020-01-23 08:00] LABS: #Eosinphils 0.1 thou/uL (0.0-0.7); #Lymphocytes 1.5 thou/uL (1.20-3.40); #Monocytes 1.5 thou/uL (0.11-0.59); #Neutrophils 13.9 thou/uL (1.40-6.50); %Basophils 0.1 % (0.0-1.0); %Eosinophils 0.5 % (0.0-10.0); %Lymphocytes 8.7 % (21.0-51.0); %Monocytes 8.9 % (0.0-10.0); %Neutrophils 81.8 % (42.0-75.0); Hemoglobin 10.5 g/dL (14.0-18.0); Mean Corpuscular HGB CONC 33.1 g/dL (32.0-36.0); Mean Corpuscular Hemoglobin 31.2 pg (27.0-31.0); Mean Corpuscular Volume 94.2 fL (78.0-98.0); Mean Platelet Volume 6.8 fL (7.4-10.4); Platelet Count 422 thou/uL (130-400); RBC Distribution Width 11.4 % (11.5-14.5); Red Blood Cell (RBC) Count 3.35 mill/uL (4.70-6.10); White Blood Cell (WBC) Count 16.9 thou/uL (4.8-10.8)
[2020-01-23 08:29] LABS: ALT (SGPT) 132 U/L (8-55); AST (SGOT) 134 U/L (5-34); Albumin 3.1 g/dL (3.5-5.0); Alkaline Phosphatase 156 U/L (40-110); Anion Gap 15 mmol/L (10-20); BUN (Urea Nitrogen) 11 mg/dL (8.9-20.6); Bilirubin, Total 0.6 mg/dL (0.2-1.2); Calc. Creatinine Clearance 168 mL/min (70-130); Calcium 8.5 mg/dL (7.8-10.44); Carbon Dioxide 24 mmol/L (22-29); Chloride 100 mmol/L (98-107); Globulin 4.1 g/dL (2.4-3.5); Glucose 112 mg/dL (70-105); Potassium 3.7 mmol/L (3.5-5.1); Protein, Total 7.2 g/dL (6.0-8.3); Sodium 135 mmol/L (136-145)
[2020-01-23] MEDS: guaiFENesin/DM ER PO SCH ×2 (08:49→20:08)
[2020-01-23] MEDS: Potassium Chloride 20 MEQ TAB PO SCH ×2 (08:49→17:44)
[2020-01-23] MEDS: predniSONE 20 MG TAB PO SCH ×2 (08:49→17:44)
[2020-01-23] MEDS: Enoxaparin Sodium 40 MG/0.4 ML SYRINGE SC SCH (08:49)
[2020-01-23] MEDS: Cefepime 2 GM in Sodium Chloride 0.9% 100 ML IVPB SCH ×2 (08:53→20:08)
[2020-01-23] MEDS ORDERED: PROPOFOL 200 MG/20 ML VIAL ONE (09:21)
[2020-01-23] MEDS ORDERED: Lidocaine 1% PF 5 ML VIAL ONE (09:21)
--- NOTE | 2020-01-23 11:09 | PDOC.HOSPP ---
- Subjective Encounter Date: 01/23/20 Encounter Time: 11:05 Subjective: f/u for R lung abscess likely due to GERD with aspiration currently receiving Cefepime. Feels weak and tired but no fever spikes overnight. - Objective Vital Signs & Weight: Vital Signs (12 hours) Temp Pulse Resp BP BP Pulse Ox 01/23/20 07:45 98.1 F 99 20 109/70 97 01/23/20 06:56 96 18 96 01/23/20 05:09 99.4 F 94 20 128/75 94 L Weight Weight 221 lb 2 oz I&O: 01/22/20 01/23/20 01/24/20 06:59 06:59 06:59 Intake Total 580 Balance 580 Result Diagrams: 01/23/20 07:41 01/23/20 07:41 Additional Labs: Microbiology 01/19/20 Unknown Nasopharyngeal swab Respiratory Virus Panel (PCR) - Final 01/19/20 17:15 Nasal swab Influenza Types A,B Direct EIA - Final 01/20/20 05:00 Sputum Respiratory Culture - Preliminary 01/20/20 05:00 Sputum Respiratory Culture - Preliminary 01/19/20 15:42 Venous blood - Right Arm Blood Culture - Preliminary Specimen has been received and culture in progress. No Growth to date. 01/19/20 15:42 Venous blood - Right Arm Blood Culture - Preliminary NO GROWTH AT 48 HOURS 01/19/20 15:24 Venous blood - Left Hand Blood Culture - Preliminary Specimen has been received and culture in progress. No Growth to date. 01/19/20 15:24 Venous blood - Left Hand Blood Culture - Preliminary NO GROWTH AT 48 HOURS Laboratory Tests 01/19/20 01/19/20 01/19/20 15:42 15:42 15:42 WBC 21.8 H Hgb 12.0 L Plt Count 425 H Band Neuts % (Manual) 16 H D-Dimer Sodium 134 L Potassium 3.1 L B-Natriuretic Peptide 30.3 Lipase 18 Hepatitis A IgM Ab Hep Bs Antigen Hep B Core IgM Ab Hepatitis C Antibody HIV 1&2 Antigen & Ab Ur L.pneumophila Ag SARS-CoV-2 Rap RNA(RT-PCR) Ur Strep pneumoniae Ag 01/19/20 01/19/20 01/19/20 15:42 17:15 17:42 WBC Hgb Plt Count Band Neuts % (Manual) D-Dimer 3.06 H Sodium Potassium B-Natriuretic Peptide Lipase Hepatitis A IgM Ab Hep Bs Antigen Hep B Core IgM Ab Hepatitis C Antibody HIV 1&2 Antigen & Ab Ur L.pneumophila Ag Negative SARS-CoV-2 Rap RNA(RT-PCR) Not Detected Ur Strep pneumoniae Ag NEGATIVE 01/19/20 19:07 WBC Hgb Plt Count Band Neuts % (Manual) D-Dimer Sodium Potassium B-Natriuretic Peptide Lipase Hepatitis A IgM Ab Non-Reactive Hep Bs Antigen Non-Reactive Hep B Core IgM Ab Non-Reactive Hepatitis C Antibody Non-Reactive HIV 1&2 Antigen & Ab Non-Reactive Ur L.pneumophila Ag SARS-CoV-2 Rap RNA(RT-PCR) Ur Strep pneumoniae Ag Hospitalist ROS - Medication Medications: Active Medications Generic Name Dose Route Start Last Admin Trade Name Freq PRN Reason Stop Dose Admin Acetaminophen 650 mg 01/19/20 17:50 01/21/20 11:45 Acetaminophen 325 Mg Tab PO 650 mg Q4H PRN Administration Headache/Fever/Mild Pain (1-3) Albuterol/Ipratropium 3 ml 01/19/20 19:00 01/23/20 06:56 Ipratropium/Albuterol Sulfate 3 Ml Neb NEB 3 ml [id number] KATT Administration Enoxaparin Sodium 40 mg 01/20/20 09:00 01/23/20 08:49 Enoxaparin Sodium 40 Mg/0.4 Ml Syringe SC Not Given 0900 KATT Guaifenesin/Dextromethorphan 15 ml 01/19/20 17:50 01/22/20 15:25 Guaifenesin Dm 100-10/5 Ml Udcup PO 15 ml Q4H PRN Administration Cough Guaifenesin/Dextromethorphan 1 tab 01/21/20 21:00 01/23/20 08:49 Guaifenesin/Dm Er PO Not Given Q12HR KATT Cefepime HCl 2 gm/ Sodium 100 mls @ 200 mls/hr 01/20/20 21:00 01/23/20 08:53 Chloride IVPB 100 mls Q12HR KATT Administration Melatonin 9 mg 01/21/20 16:48 01/22/20 21:06 Melatonin 3 Mg Tab PO 9 mg HSPRN PRN Administration Insomnia Pantoprazole Sodium 40 mg 01/22/20 09:00 01/23/20 08:50 Pantoprazole 40 Mg Tab PO Not Given DAILY KATT Potassium Chloride 40 meq 01/22/20 08:00 01/23/20 08:49 Potassium Chloride 20 Meq Tab PO Not Given BID-WM KATT Prednisone 20 mg 01/22/20 08:00 01/23/20 08:49 Prednisone 20 Mg Tab PO Not Given QAM-WM KATT Saccharomyces Boulardii 250 mg 01/21/20 17:00 01/22/20 16:57 Saccharomyces Boulardii 250 Mg Cap PO 250 mg 1700 KATT Administration - Exam General Appearance: NAD, awake alert Eye: PERRL, anicteric sclera ENT: normocephalic atraumatic, no oropharyngeal lesions Neck: supple, symmetric, no JVD, no thyromegaly, no lymphadenopathy Heart: RRR, no murmur, no gallops, no rubs, normal peripheral pulses Heart - other findings: S1, S2 Respiratory - other findings: few scattered rhonchi in R chest, diminished in R base Gastrointestinal: soft, non-tender, non-distended, normal bowel sounds, no palpable masses Extremities: no cyanosis, no clubbing, no edema Skin: normal turgor, no lesions Neurological: cranial nerve grossly intact, no new deficit Musculoskeletal: normal tone, normal strength, no muscle wasting Psychiatric: normal affect, A&O x 3 Hosp A/P (1) Cavitary pneumonia Code(s): J18.9 - PNEUMONIA, UNSPECIFIED ORGANISM; J98.4 - OTHER DISORDERS OF LUNG Status: Acute Plan: Continue Cefepime IV, general pulmonary support, ? bronchoscopy if clinically decompensating or as outpt (2) Sepsis due to pneumonia Code(s): J18.9 - PNEUMONIA, UNSPECIFIED ORGANISM; A41.9 - SEPSIS, UNSPECIFIED ORGANISM Status: Acute Plan: Improved, continue IV Cefepime/IVF's (3) Hyponatremia Code(s): E87.1 - HYPO-OSMOLALITY AND HYPONATREMIA Status: Acute Plan: Resolving, serial Na+ monitoring (4) Hypokalemia Code(s): E87.6 - HYPOKALEMIA Status: Acute Plan: Improved, serial K+ monitoring (5) GERD (gastroesophageal reflux disease) Code(s): K21.9 - GASTRO-ESOPHAGEAL REFLUX DISEASE WITHOUT ESOPHAGITIS Status: Chronic (6) Transaminitis Code(s): R74.01 - ELEVATION OF LEVELS OF LIVER TRANSAMINASE LEVELS Status: Acute Plan: Suspect iatrogenic, Hep A/B/C negative, check RUQ sono, serial LFT monitoring - Plan continue antibiotics, social human services assistants, respiratory therapy, out of bed/ambulate, DVT proph w/SCDs Continue Cefepime General pulmonary supportive mgmt Appreciated Pulmonolgy assistance EGD today per GI Sputum cx showing normal niles KCL 40meq BID Add Mucinex DM BID Trial Restoril 30mg HS RUQ sono after EGD AM lab: CMP, CBC, GGT
--- NOTE | 2020-01-23 16:12 | PRG ---
DATE OF SERVICE: 01/23/2020 Mr. Del Angel is awaiting EGD this morning. Temperature maximum is 99.7. He continues on IV antibiotics. We may consider switching him to p.o. antimicrobial therapy tomorrow depending on how he looks and depending on what the endoscopy shows. Job ID: [id number]
[2020-01-23] MEDS: Saccharomyces boulardii 250 MG CAP PO SCH (17:44)
--- NOTE | 2020-01-23 18:53 | OP ---
DATE OF PROCEDURE: 01/23/2020 PREPROCEDURE DIAGNOSES: 1. Chronic reflux, on eizl-iqy-szhlorx omeprazole for many years. 2. Intermittent vague dysphagia. 3. Intermittent bouts of awaking at night with bile reflux causing need to mouthful of acid. 4. Now admitted with aspiration pneumonia in the right lung. No history of heavy alcohol abuse or other risk factors. POSTPROCEDURE DIAGNOSES: 1. 5 cm sliding hiatal hernia with hiatus at 40 cm, Z-line at 35 cm. 2. Slight nodularity in proximal Z-line and inflammation. It is difficult to tell if this is just reflux esophagitis or short-segment Robbins's. Multiple biopsies obtained at 35 cm. 3. No stricture. 4. Empiric dilatation 18 mm (54-Georgian). No effect on second look and no resistance. 5. Normal stomach in forward and retroflexed views otherwise. RECOMMENDATIONS: 1. B.i.d. PPI 40 mg Protonix. 2. Elevate head of bed when sleeping to 45 degrees at all times. 3. When lying on side, sleeping only on the left. 4. Do not eat within 3 hours of lying down at night. 5. Avoid all alcohol and tobacco. 6. After patient gets over his aspiration pneumonia, consider surgical referral for elective hiatal hernia repair as he has had serious complications of his reflux that this is more for the aspiration and not for his reflux symptoms which are controlled well with his PPI. 7. Await histopathology. ANESTHESIA: TIVA. DESCRIPTION OF PROCEDURE: After the patient was informed of the risks, benefits, and possible complications of endoscopy including perforation, bleeding, reaction to medication, and aspiration, informed consent was obtained. The patient was brought to endoscopy suite, where he was sedated in a gradual fashion. Once he was comfortable, a bite block was placed in the incisural orifice. The endoscope was advanced through the esophagus, stomach, into the second and third portions of the duodenum. The esophagus notable for a 5 cm sliding hiatal hernia with the Z-line and proximal gastric folds noted roughly at 35 cm in the incisural orifice. The hiatus was noted at 40 cm. Retroflexed view showed no other lesions or paraesophageal hernia. The antrum and pylorus were normal. The duodenum was normal in the third portion. The stomach had normal sensibility. Due to the fact that patient was coughing quite a bit, it is hard to keep the stomach completely distended for the entire exam. The proximal stomach was not able to be completely seen as well as however, with his cough, we decided not to stay in the stomach or distend further as he was having active reflux during the procedure. The Z-line was closely investigated with some nodularity just proximal to the gastric folds. Biopsies were taken of these areas and also to look for short-segment Robbins's. No ulcers or masses were seen. The esophagus showed no strictures or changes of eosinophilic esophagitis. Empiric dilatation was performed with 54-Georgian Little dilator and second-look confirmed no effect. There was no resistance with this. The scope was removed. The patient tolerated the procedure well with no complications. Job ID: [id number]
--- NOTE | 2020-01-23 19:08 | CON ---
DATE OF CONSULTATION: 01/23/2020 REASON FOR CONSULTATION: Concern for aspiration pneumonia, chronic reflux, requested by Pulmonary to perform EGD to evaluate for strictures or other abnormalities. HISTORY OF PRESENT ILLNESS: Mr. Del Angel is a 44-year-old gentleman who for 2 weeks prior to admission was having loss of appetite and just did not feel well. He had some chills and slight cough. Ultimately, he came to the hospital and was diagnosed with a left upper lobe aspiration pneumonia on CAT scan that was on the . He has improved now with antibiotics for the third day, but he still has some cough. As far as reflux goes, he notes he takes Prilosec daily and has for several years with long history of about once a month having to wake in the middle of the night with bile or gastric contents in his mouth and having to jump up to go to the bathroom and spit it out. This can happen every month for a few months and it may not happen for 6 or 8-month period. He notes as long as he takes his PPI, which he takes almost every day, his reflux is controlled on [id number] Prilosec 20 mg. He occasionally has some dysphagia and feels like certain foods like bread will stop and he will have to swallow water to get it down, but he has never had bolus obstruction symptoms. He has no chronic cough. PAST MEDICAL HISTORY: Necrotizing upper lobe pneumonia on the right, reflux, asthma. PAST SURGICAL HISTORY: None. FAMILY HISTORY: Father had lung cancer and was a smoker. SOCIAL HISTORY: He does not smoke, drink very much alcohol, or use any drugs. His is at the bedside. PRESENT MEDICATIONS: 1. Tylenol. 2. DuoNeb. 3. Dulcolax. 4. Cefepime. 5. Lovenox. 6. Robitussin. 7. [place] p.r.n. 8. Melatonin. 9. Zofran. 10. Protonix 40 daily. 11. Prednisone 20 mg a day. 12. Florastor. 13. Restoril. PHYSICAL EXAMINATION: VITAL SIGNS: Temperature is 99.7, pulse 108, blood pressure is 110/82, T-max 103 on 01/19. GENERAL: He is resting, sitting up in a chair by the bed. He is a little bit pale and clammy. LUNGS: Clear. Decreased breath sounds in the right lung. HEART: Regular rate and rhythm. ABDOMEN: Soft and nontender with no rebound or guarding. EXTREMITIES: No clubbing, cyanosis, or edema. SKIN: No rash or lesions. LABORATORY DATA: White count was 21,000 on admission, now 16.9; hemoglobin 10.5, was 12 on admission; platelet count was 425, down to 422; bands not recorded on today's CBC. Sodium 135, potassium 3.7, BUN and creatinine are 11 and 0.7. AST and ALT are 134 and 132 with alkaline phosphatase 156. These were 77, 62, and 152 yesterday. These were 26, 37, and 164 . Bilirubin has been normal the entire time. Albumin 3.1 and protein 7.2. Albumin on 01/18 was 3.5 and protein was 7.9. Serology; hepatitis A, B and C negative. SARS negative. Strep pneumo negative. negative. Microbiology; respiratory culture, few gram-negative rods, moderate gram-positive cocci, rare gram-positive rods, moderate white blood cells. Respiratory viral panel negative. Influenza A and B negative. Blood cultures negative. CT of the chest showed cavitary mass in the right lung apex, infectious etiology versus malignant per pathology. From my review of these films, the visualized liver appears normal, but this is not a study to evaluate for liver masses. ASSESSMENT: 1. Pneumonia, likely aspiration. 2. Reflux, probably the cause of his pneumonia. 3. Request from Pulmonary for esophagogastroduodenoscopy during this admission to complete his workup as well as his respiratory status was stable at that point, I would agree, although he still some pulmonary symptoms. 4. Elevated liver function tests. It could be related to his pneumonia. It could be related to hepatic abscesses. It could be related to his medications. RECOMMENDATIONS: 1. Consider ultrasound of right upper quadrant. 2. Continue to rise or dedicated CT with contrast to rule out hepatic abscess. 3. EGD today. Job ID: [id number]
[2020-01-23] MEDS: Guaifenesin DM 100-10/5 ML UDCUP PO PRN (21:03)
[2020-01-23] MEDS: Temazepam 15 MG CAP PO PRN (21:04)
[2020-01-24 05:31] LABS: #Lymphocytes 0.8 thou/uL (1.20-3.40); #Monocytes 1.1 thou/uL (0.11-0.59); #Neutrophils 14.8 thou/uL (1.40-6.50); %Basophils 0.2 % (0.0-1.0); %Eosinophils 0.3 % (0.0-10.0); %Lymphocytes 4.7 % (21.0-51.0); %Monocytes 6.6 % (0.0-10.0); %Neutrophils 88.2 % (42.0-75.0); Hemoglobin 11.5 g/dL (14.0-18.0); Mean Corpuscular HGB CONC 31.1 g/dL (32.0-36.0); Mean Corpuscular Hemoglobin 29.5 pg (27.0-31.0); Mean Corpuscular Volume 94.8 fL (78.0-98.0); Mean Platelet Volume 7.1 fL (7.4-10.4); Platelet Count 485 thou/uL (130-400); RBC Distribution Width 11.6 % (11.5-14.5); Red Blood Cell (RBC) Count 3.88 mill/uL (4.70-6.10); White Blood Cell (WBC) Count 16.8 thou/uL (4.8-10.8)
[2020-01-24 05:53] LABS: ALT (SGPT) 136 U/L (8-55); AST (SGOT) 90 U/L (5-34); Albumin 3.3 g/dL (3.5-5.0); Alkaline Phosphatase 159 U/L (40-110); Anion Gap 16 mmol/L (10-20); BUN (Urea Nitrogen) 14 mg/dL (8.9-20.6); Bilirubin, Total 0.6 mg/dL (0.2-1.2); Calc. Creatinine Clearance 174 mL/min (70-130); Calcium 8.6 mg/dL (7.8-10.44); Carbon Dioxide 24 mmol/L (22-29); Chloride 102 mmol/L (98-107); Globulin 3.5 g/dL (2.4-3.5); Glucose 118 mg/dL (70-105); Potassium 5.1 mmol/L (3.5-5.1); Protein, Total 6.8 g/dL (6.0-8.3); Sodium 137 mmol/L (136-145)
[2020-01-24] MEDS: Cefepime 2 GM in Sodium Chloride 0.9% 100 ML IVPB SCH ×2 (07:49→20:32)
[2020-01-24] MEDS: predniSONE 20 MG TAB PO SCH (07:49)
[2020-01-24] MEDS: Enoxaparin Sodium 40 MG/0.4 ML SYRINGE SC SCH (07:50)
[2020-01-24] MEDS: guaiFENesin/DM ER PO SCH ×2 (07:50→20:32)
[2020-01-24] MEDS: Potassium Chloride 20 MEQ TAB PO SCH ×2 (07:51→16:25)
--- NOTE | 2020-01-24 08:21 | ULT ---
RIGHT UPPER QUADRANT ULTRASOUND CLINICAL HISTORY: History of hepatic mass and elevated LFTs. COMPARISON: None FINDINGS: Liver:There is a 1.9 x 1.5 x 1.6 cm within the posterior right hepatic lobe. No additional focal hepa tic lesion is evident. Intrahepatic bile ducts: No intrahepatic or extrahepatic biliary dilation.; Common bile duct: 3 mm. Gallbladder: Normal appearing. Berrios's sign:None Main portal vein:Patent with hepatopedal flow. Pancreas:Visualized pancreas appears normal. Right kidney: Right kidney measures 11.1 x 5.8 x 5.5 cm. No focal renal lesion or hydronephrosis. Additional findings: None. IMPRESSION: 1.9 cm hyperechoic lesion within the right hepatic lobe. Findings may reflect a hepatic hemangioma, l ipoma or adenoma. Further evaluation with a CT or MRI of the abdomen utilizing a hemangioma protocol is recommended.
--- NOTE | 2020-01-24 10:16 | PDOC.HOSPP ---
- Subjective Encounter Date: 01/24/20 Encounter Time: 09:15 Subjective: f/u for lung abscess probably 2/2 GERD aspirate - receiving IV cefepime. Feels better than previous day and slept well overnight with Restoril. Complains of night sweats. Tmax in last 24 hours 99.7F. - Objective Vital Signs & Weight: Vital Signs (12 hours) Temp Pulse Resp BP Pulse Ox 01/24/20 08:00 89 16 93 L 01/24/20 07:16 98.3 F 86 18 117/76 92 L Weight Weight 221 lb 2 oz Result Diagrams: 01/24/20 05:04 01/24/20 05:04 Additional Labs: Laboratory Tests 01/24/20 01/24/20 05:04 05:04 Total Bilirubin 0.6 GGT 110 H AST 90 H ALT 136 H Alkaline Phosphatase 159 H Albumin 3.3 L Radiology Reviewed by me: Yes (1.9cm hyperechoic lesion in posterior right h epatic lobe.) Hospitalist ROS - Review of Systems Constitutional: reports: sweats. denies: fever, chills, weakness, malaise, other Respiratory: reports: cough, sputum. denies: dry, shortness of breath, hemop tysis, SOB with excertion, pleuritic pain, wheezing, other Gastrointestinal: denies: nausea, vomiting, abdominal pain, diarrhea, constipation, melena, hematochezia, other - Medication Medications: Active Medications Generic Name Dose Route Start Last Admin Trade Name Freq PRN Reason Stop Dose Admin Acetaminophen 650 mg 01/19/20 17:50 01/21/20 11:45 Acetaminophen 325 Mg Tab PO 650 mg Q4H PRN Administration Headache/Fever/Mild Pain (1-3) Albuterol/Ipratropium 3 ml 01/19/20 19:00 01/24/20 08:00 Ipratropium/Albuterol Sulfate 3 Ml Neb NEB 3 ml [id number] KATT Administration Enoxaparin Sodium 40 mg 01/20/20 09:00 01/24/20 07:50 Enoxaparin Sodium 40 Mg/0.4 Ml Syringe SC 40 mg 0900 KATT Administration Guaifenesin/Dextromethorphan 15 ml 01/19/20 17:50 01/23/20 21:03 Guaifenesin Dm 100-10/5 Ml Udcup PO 15 ml Q4H PRN Administration Cough Guaifenesin/Dextromethorphan 1 tab 01/21/20 21:00 01/24/20 07:50 Guaifenesin/Dm Er PO 1 tab Q12HR KATT Administration Cefepime HCl 2 gm/ Sodium 100 mls @ 200 mls/hr 01/20/20 21:00 01/24/20 07:49 Chloride IVPB 100 mls Q12HR KATT Administration Melatonin 9 mg 01/21/20 16:48 01/22/20 21:06 Melatonin 3 Mg Tab PO 9 mg HSPRN PRN Administration Insomnia Pantoprazole Sodium 40 mg 01/23/20 21:00 01/24/20 07:50 Pantoprazole 40 Mg Tab PO 40 mg BID KATT Administration Potassium Chloride 40 meq 01/22/20 08:00 01/24/20 07:51 Potassium Chloride 20 Meq Tab PO Not Given BID-WM KATT Prednisone 20 mg 01/22/20 08:00 01/24/20 07:49 Prednisone 20 Mg Tab PO 20 mg QAM-WM KATT Administration Saccharomyces Boulardii 250 mg 01/21/20 17:00 01/23/20 17:44 Saccharomyces Boulardii 250 Mg Cap PO 250 mg 1700 KATT Administration Temazepam 30 mg 01/23/20 11:39 01/23/20 21:04 Temazepam 15 Mg Cap PO 30 mg HSPRN PRN Administration Insomnia - Exam General Appearance: awake alert. negative: ill appearing Heart: RRR, no murmur, no gallops, no rubs, normal peripheral pulses Respiratory: CTAB, no wheezes, no rales, no ronchi, normal chest expansion, no tachypnea Gastrointestinal: soft, non-tender, non-distended, normal bowel sounds, no palpable masses, no hepatomegaly, no splenomegaly, no bruit Hosp A/P (1) Cavitary pneumonia Code(s): J18.9 - PNEUMONIA, UNSPECIFIED ORGANISM; J98.4 - OTHER DISORDERS OF LUNG Status: Acute Plan: consider switching to po antibiotic, appreciate pulmonary support (2) Sepsis due to pneumonia Code(s): J18.9 - PNEUMONIA, UNSPECIFIED ORGANISM; A41.9 - SEPSIS, UNSPECIFIED ORGANISM Status: Acute Plan: cont. antibiotic and IVFs (3) Transaminitis Code(s): R74.01 - ELEVATION OF LEVELS OF LIVER TRANSAMINASE LEVELS Status: Acute Plan: cont. monitoring LFTs (4) GERD (gastroesophageal reflux disease) Code(s): K21.9 - GASTRO-ESOPHAGEAL REFLUX DISEASE WITHOUT ESOPHAGITIS Status: Chronic (5) Hypokalemia Code(s): E87.6 - HYPOKALEMIA Status: Acute Plan: resolving, monitor K+ (6) Hyponatremia Code(s): E87.1 - HYPO-OSMOLALITY AND HYPONATREMIA Status: Acute Plan: resolving, monitor Na+ - Plan old records reviewed/req, plan discussed w/ family, continue antibiotics, older adult social work specialist, respiratory therapy, out of bed/ambulate, DVT proph w/lovenox Continue Cefepime Considering switching to po antibiotic Appreciate pulmonary support Appreciate GI support Awaiting biopsy results from EGD Continue Mucinex DM bid Continue Restoril for temporary sleep aid AM labs: CMP, CBC, LFT
[2020-01-24] MEDS: Saccharomyces boulardii 250 MG CAP PO SCH (16:26)
[2020-01-24] MEDS: Guaifenesin DM 100-10/5 ML UDCUP PO PRN ×2 (18:04→22:04)
--- NOTE | 2020-01-24 20:04 | PRG ---
DATE OF SERVICE: SUBJECTIVE: Mr. Del Angel had a good night last night with sleeping pill. He says he feels good today. OBJECTIVE: LUNGS: Unchanged. HEART: Unchanged. ABDOMEN: Unchanged. PLAN: I suspect he can go home tomorrow. I will probably discharge him with budesonide and Brovana to nebulize twice a day. We will stop his prednisone. We will treat him with 3 weeks of Augmentin. We will see him back in followup for a chest x-ray in 3 weeks. He had sweats last night, which may be from the prednisone. There has been no significant temperature elevation since the . 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 We will see him in the morning. Job ID: [id number]
--- NOTE | 2020-01-24 20:53 | PRG ---
DATE OF SERVICE: 01/24/2020 SUBJECTIVE: Mr. Del Angel feels much better today than he did yesterday. He is tolerating a regular diet. PHYSICAL EXAMINATION: VITAL SIGNS: Temperature 98.3, pulse 86, oxygen saturation 92% on room air, and blood pressure 117/76. GENERAL: He is in no acute distress. Alert and oriented x3. LUNGS: Clear to auscultation bilaterally. HEART: Regular rate and rhythm without murmur. ABDOMEN: Soft, nontender, and nondistended. Bowel sounds are present. EXTREMITIES: No lower extremity edema. LABORATORY DATA: White blood cell count 16.8, hemoglobin 11.5, platelets 485. Creatinine 0.76, bilirubin 0.6, AST 90, ALT 136, alkaline phosphatase 159, and albumin 3.3. IMPRESSION: 1. Aspiration pneumonia, clinically improving with antibiotics. 2. Hiatal hernia and gastroesophageal reflux disease. He has been on proton pump inhibitor with Prilosec 20 mg daily as an outpatient. Still with the aspiration now more of a volume reflux issue, he might ultimately require surgical correction of his hiatal hernia. This could be done in the future after resolution of his pulmonary symptoms. In the meantime, he will need to maintain chronic proton pump inhibitor. 3. 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 There is no dysplasia. Again, he will need to remain on indefinite proton pump inhibitor. Followup endoscopy should be performed in one year to re-biopsy this site. After that, then surveillance can be performed every 3 to 5 years. 4. Abnormal liver test. Mixed cholestatic and hepatocellular injury pattern to his liver tests. This likely was secondary to pneumonia and sepsis on presentation. There are no obvious medications that would cause this, but still medication side effect is possible. Overall, his AST is trending down today and the ALT and alkaline phosphatase are stable. He should follow up in the office in 2 to 4 weeks to recheck the trend of his liver tests and if they remain elevated, then more extensive liver workup can be performed. 5. Liver lesion by ultrasound. A 1.9 cm lesion was noted in the liver by ultrasound. This likely is a hemangioma. I reviewed the CT angiogram of the chest, which includes almost the entire liver. This lesion was not seen by that arterial study. Again, nothing to suggest abscess or worrisome lesion. Followup imaging can be scheduled such as MRI of the liver in the future as an outpatient. RECOMMENDATIONS: 1. He will discharge on pantoprazole 40 mg twice daily. 2. He is advised to elevate the head of his bed and keep his stomach empty 3 hours before lying down at night. 3. He is advised to avoid all alcohol and tobacco. 4. Follow up with Dr. Cortés in the office in 2 to 4 weeks to recheck his liver tests. Follow up on the liver lesion noted by ultrasound and discuss plan for his hiatal hernia and Robbins's esophagus further. 5. I will sign off. Please call if GI can be of assistance. Job ID: [id number]
[2020-01-24] MEDS: Temazepam 15 MG CAP PO PRN (22:03)
[2020-01-25] MEDS: Enoxaparin Sodium 40 MG/0.4 ML SYRINGE SC SCH (07:48)
[2020-01-25] MEDS: guaiFENesin/DM ER PO SCH (07:48)
[2020-01-25] MEDS: Guaifenesin DM 100-10/5 ML UDCUP PO PRN ×2 (08:39→16:55)
[2020-01-25] MEDS ORDERED: Amoxicillin/Potassium Clav 875 MG TAB PO SCH (09:00)
[2020-01-25] MEDS: predniSONE 20 MG TAB PO SCH (09:45)
--- NOTE | 2020-01-25 10:15 | PDOC.DS.DS ---
Provider - Provider Date of Admission: 01/19/20 17:28 Date of Discharge: 01/25/20 Admitting Provider: Redd Kirkland MD Consultations: Gastroentrology, Pulmonary Primary Care Physician: OUT OF TOWN Course - Hospital Course Hospital Course: 44-year-old male who was admitted on January 19, 2020 . On admission patient had chest x-ray which showed right upper lobe consolidation consistent with pneumonia. Patient underwent CT angiography which showed cavitary mass within the right lung apex, Pulmonology was consulted after admission and they recommended to treat with antibiotic therapy, patient was found with necrotizing upper lobe pneumonia and most common etiology for this particular patient was reflux and aspiration. Gastroenterology was consulted. Patient had a esophageal biopsy, patient had EGD which showed 5 cm sliding hiatal hernia, Robbins's esophagus, patient needs to follow-up on biopsy report from EGD, necessary precaution about acid reflux discussed with the patient, patient will need general surgery referral after pneumonia clears. Nonpharmacological measures for acid reflux discussed with the patient in detail. Patient had abnormal LFT and that is why patient underwent ultrasound right upper quadrant which showed 1.9 cm lesion in the right hepatic lobe, patient will need outpatient imaging. His LFT needs to be monitored as an outpatient basis. On discharge be changed to Augmentin for another 3 weeks, Protonix prescribed, nebulizer medication prescribed as per pulmonology. Patient is on room air, he is clinically improving, he has no fever, his culture remain negative, respiratory virus panel and influenza negative, his COVID-19 negative, strep pneumo and Legionella pneumonia antigen negative, hepatitis profile negative, HIV negative Patient seen and examined bedside today, after pulmonology evaluation patient will be discharged home. Resuscitation Status: 01/19/20 17:44 Resuscitation Status Routine Resuscitation Status: FULL: Full Resuscitation Discussed with: POA: - Labs Lab Results: 01/24/20 05:04 01/24/20 05:04 Abnormal Lab Results - Last 48 hrs 01/24/20 05:04: AST 90 H, ALT 136 H, Alkaline Phosphatase 159 H, Albumin 3.3 L, Albumin/Globulin Ratio 0.9 L 01/24/20 05:04: WBC 16.8 H, RBC 3.88 L, Hgb 11.5 L, Hct 36.8 L, MCHC 31.1 L, Plt Count 485 H, MPV 7.1 L, Neutrophils % 88.2 H, Lymphocytes % 4.7 L, Neutrophils # 14.8 H, Lymphocytes # 0.8 L, Monocytes # 1.1 H 01/24/20 05:04: GGT 110 H Microbiology - Entire Visit 01/19/20 15:24 Venous blood - Left Hand Blood Culture - Final NO GROWTH IN 5 DAYS 01/19/20 15:42 Venous blood - Right Arm Blood Culture - Final NO GROWTH IN 5 DAYS 01/20/20 05:00 Sputum Respiratory Culture - Final 01/19/20 Unknown Nasopharyngeal swab Respiratory Virus Panel (PCR) - Final 01/19/20 17:15 Nasal swab Influenza Types A,B Direct EIA - Final - Physical Exam Vitals: Vital Signs (12 hours) Temp Pulse Resp BP Pulse Ox 01/25/20 08:10 85 16 94 L 01/25/20 08:00 92 L 01/25/20 07:12 98.4 F 95 18 111/67 92 L Weight Weight 221 lb 2 oz Physical Exam: The patient was seen and examined on the day of discharge. General patient is currently alert and awake no acute distress Head normocephalic atraumatic Neck supple no JVD no meningeal signs of irritation Lungs clear to auscultation without any obvious rhonchi rales Cardiac S1-S2 regular no murmur no gallop no rub Abdomen soft, bowel sound present, nontender nondistended organomegaly no mass Extremity no edema Neurologic nonfocal examination Problem - Problem (1) Cavitary pneumonia Code(s): J18.9 - PNEUMONIA, UNSPECIFIED ORGANISM; J98.4 - OTHER DISORDERS OF LUNG Status: Acute (2) Sepsis due to pneumonia Code(s): J18.9 - PNEUMONIA, UNSPECIFIED ORGANISM; A41.9 - SEPSIS, UNSPECIFIED ORGANISM Status: Acute (3) Transaminitis Code(s): R74.01 - ELEVATION OF LEVELS OF LIVER TRANSAMINASE LEVELS Status: Acute (4) GERD (gastroesophageal reflux disease) Code(s): K21.9 - GASTRO-ESOPHAGEAL REFLUX DISEASE WITHOUT ESOPHAGITIS Status: Chronic (5) Hypokalemia Code(s): E87.6 - HYPOKALEMIA Status: Resolved (6) Hyponatremia Code(s): E87.1 - HYPO-OSMOLALITY AND HYPONATREMIA Status: Resolved Plan - Discharge Medications Prescriptions: Amoxicillin/Potassium Clav [Augmentin] 875 mg PO Q12HR #42 tab Arformoterol [Brovana] 15 mcg NEB BID #60 neb Budesonide 0.5 mg NEB BID #60 neb Saccharomyces boulardii [Florastor] 250 mg PO DAILY #21 cap Pantoprazole [Protonix] 40 mg PO BID #60 tab Home Medications: Medication Instructions Recorded Confirmed Type Amoxicillin/Potassium Clav 875 mg PO Q12HR #42 tab 01/25/20 Rx [Augmentin] Arformoterol [Brovana] 15 mcg NEB BID #60 neb 01/25/20 Rx Budesonide 0.5 mg NEB BID #60 neb 01/25/20 Rx Pantoprazole [Protonix] 40 mg PO BID #60 tab 01/25/20 Rx Saccharomyces boulardii [Florastor] 250 mg PO DAILY #21 cap 01/25/20 Rx Allergies: aspirin Allergy (Verified 01/19/20 22:22) - Discharge Instructions Activity:: Activity as Tolerated Nourishment:: Regular Diet Therapies:: Not Applicable Equipment/Supplies:: Not Applicable IV Therapy:: Not Applicable - Follow up Plan Referrals: [facility],OUT OF [Primary Care Provider] - Malik Larson MD [Active] - Tima Posada MD [Active] - Disposition: HOME Quality - Care Measures CORE MEASURES:: N/A
[2020-01-25 11:24] VITALS: TEMP 99.4
--- NOTE | 2020-01-25 11:48 | PRG ---
DATE OF SERVICE: 01/25/2020 SUBJECTIVE: Ishaan Del Angel went to bed about 1045 hours, did not wake up until 0630 hours. He says he feels much better. OBJECTIVE: VITAL SIGNS: He is afebrile, heart rate is 95, respiratory rate is 18, oximetry is 92% to 94% on room air, blood pressure is 111/67. LUNGS: Clear. He is not wheezing. HEART: Regular rhythm. ABDOMEN: Soft. IMPRESSION: 1. Aspiration pneumonia related to large hiatal hernia, chronic reflux. 2. Robbins esophagitis. 3. History of asthma that has been quiescent. I have written a prescription for budesonide and Brovana to use twice a day with his nebulizer at home. He can use p.r.n. albuterol. I have given him a prescription for Augmentin 875 twice a day for 3 weeks. 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 I will see him in 3 weeks with a chest x-ray. Job ID: [id number]
[2020-01-25] MEDS: Saccharomyces boulardii 250 MG CAP PO SCH (16:55)
[2020-01-25 17:20] VITALS: BP 107/72
--- NOTE | 2020-01-26 14:52 | EKG ---
Test Reason : Blood Pressure : / mmHG Vent. Rate : 097 BPM Atrial Rate : 097 BPM P-R Int : 152 ms QRS Dur : 088 ms QT Int : 336 ms P-R-T Axes : 055 038 028 degrees QTc Int : 426 ms Normal sinus rhythm Normal ECG Confirmed by EMA JUARES MD ([id number]), editor greeting card JHONY ACEVEDO ([id number]) on 01/26/2020 2:52:29 PM Referred By: Confirmed By:EMA JUARES MD
== END 2020-01-25 17:17 | disposition home or self-care (01) | DRG 871 ==
LOC: ERS 15:21 → ERHOLD 17:28 → T4-A 22:20
PROVIDERS: ADMIT Internal Medicine; ATTEND Internal Medicine
PROC: 0DB68ZX Excision of Stomach, Via Natural or Artificial Opening Endoscopic, Diagnostic (ICD-10-PCS; principal; 2020-01-23)
PROC: 0D758ZZ Dilation of Esophagus, Via Natural or Artificial Opening Endoscopic (ICD-10-PCS; 2020-01-23)
DX: A41.9 Sepsis, unspecified organism (principal); J85.1 Abscess of lung with pneumonia; J69.0 Pneumonitis due to inhalation of food and vomit; E87.1 Hypo-osmolality and hyponatremia; J45.909 Unspecified asthma, uncomplicated; E87.6 Hypokalemia; R79.89 Other specified abnormal findings of blood chemistry; R74.01 Elevation of levels of liver transaminase levels; F41.9 Anxiety disorder, unspecified; Z20.828 Contact with and (suspected) exposure to other viral communicable diseases; K44.9 Diaphragmatic hernia without obstruction or gangrene; K22.70 Barrett's esophagus without dysplasia; Z88.6 Allergy status to analgesic agent; Z79.51 Long term (current) use of inhaled steroids; R13.19 Other dysphagia; K21.00 Gastro-esophageal reflux disease with esophagitis, without bleeding
CPT/HCPCS: 36415; 71045; 71275; 76705; 80053; 80074; 80306; 80307; 81003; 82550; 82977; 83605; 83690; 83880; 84484; 85025; 85379; 87040; 87070; 87205; 87389; 87449; 87633; 87804; 87899; 88305; 88312; 88313; 93005; 94640; 96365; 96366; 96367; 96368; J0456; J0692; J0696; J1650; J1956; J2704; J3370; J3490; J7512; J7620; Q9967; U0002

== ENCOUNTER 2020-02-11 07:59 | Outpatient (CLI) | payer OTHER ==
--- NOTE | 2020-02-11 08:21 | RAD ---
Chest 2 views HISTORY: Dyspnea. COMPARISON: 01/19/2020. FINDINGS: Cardiac silhouette and pulmonary vasculature are unremarkable. Mediastinum is midline. Cavitary process in the right upper lobe again demonstrated, now approximately half filled with fluid , as a fluid fluid level now apparent. Pulmonary vasculature upper limits of normal. ill-defined parenchymal infiltrate projects over the ri ght posterior lung base slightly more prominent than on the prior CT. No evidence of pneumothorax. IMPRESSION : Interval accumulation of fluid within the large right upper lobe cavitary mass. Slight progression of right lower lobe infiltrate.
== END 2020-02-11 08:00 | disposition home or self-care (01) ==
LOC: BICRAD 07:59
PROVIDERS: ATTEND Internal Medicine Critical Care Medicine
DX: R06.00 Dyspnea, unspecified (principal); J81.1 Chronic pulmonary edema; R91.8 Other nonspecific abnormal finding of lung field
CPT/HCPCS: 71046

== ENCOUNTER 2020-02-26 10:07 | Outpatient (CLI) | payer OTHER ==
--- NOTE | 2020-02-26 10:51 | RAD ---
PA AND LATERAL CHEST: HISTORY: Dyspnea. COMPARISON: 02/11/2020 exam. FINDINGS: Heart size is within normal limits. The cavitary lesion in the right upper lobe no longer has an air fluid level within it. There is persistent pleural thickening. IMPRESSION: Cavitary lesion within the right upper lobe no longer has the air fluid level seen on the previous ex am. POS: [facility]
== END 2020-02-26 10:08 | disposition home or self-care (01) ==
LOC: BICRAD 10:07
PROVIDERS: ATTEND Internal Medicine Critical Care Medicine
DX: R06.00 Dyspnea, unspecified (principal)
CPT/HCPCS: 71046

== ENCOUNTER 2020-06-25 12:01 | Outpatient (CLI) | payer OTHER | END 2020-06-25 12:02 | disposition home or self-care (01) | LOC: BICRAD 12:01 | PROVIDERS: ATTEND Internal Medicine Critical Care Medicine | DX: R06.00 Dyspnea, unspecified (principal); J98.4 Other disorders of lung | CPT/HCPCS: 71046 ==

== ENCOUNTER 2020-10-01 12:20 | Outpatient (CLI) | payer OTHER | END 2020-10-01 12:21 | disposition home or self-care (01) | LOC: BICRAD 12:20 | PROVIDERS: ATTEND Internal Medicine Critical Care Medicine | DX: R06.00 Dyspnea, unspecified (principal); R91.1 Solitary pulmonary nodule | CPT/HCPCS: 71046 ==

== ENCOUNTER 2021-06-25 11:18 | Outpatient (CLI) | payer OTHER | END 2021-06-25 11:19 | disposition home or self-care (01) | LOC: RAD 11:18 | PROVIDERS: ATTEND Internal Medicine Critical Care Medicine | DX: R06.00 Dyspnea, unspecified (principal) | CPT/HCPCS: 71046 ==

== ENCOUNTER 2021-07-14 10:53 | Outpatient (CLI) | payer OTHER | END 2021-07-14 10:54 | disposition home or self-care (01) | LOC: RAD 10:53 | PROVIDERS: ATTEND Internal Medicine Critical Care Medicine | DX: R06.00 Dyspnea, unspecified (principal); R91.1 Solitary pulmonary nodule | CPT/HCPCS: 71046 ==

== ENCOUNTER 2021-08-21 09:24 | Outpatient (CLI) | payer OTHER | END 2021-08-21 09:25 | disposition home or self-care (01) | LOC: RAD 09:24 | PROVIDERS: ATTEND Internal Medicine Critical Care Medicine | DX: R06.00 Dyspnea, unspecified (principal) | CPT/HCPCS: 71046 ==

== ENCOUNTER 2021-09-17 11:33 | Outpatient (CLI) | payer OTHER | END 2021-09-17 11:34 | disposition home or self-care (01) | LOC: RAD 11:33 | PROVIDERS: ATTEND Internal Medicine Critical Care Medicine | DX: R06.00 Dyspnea, unspecified (principal); J98.4 Other disorders of lung | CPT/HCPCS: 71046 ==

== ENCOUNTER 2021-12-24 08:40 | Outpatient (CLI) | payer OTHER | END 2021-12-24 08:41 | disposition home or self-care (01) | LOC: RAD 08:40 | PROVIDERS: ATTEND Internal Medicine Critical Care Medicine | DX: R06.00 Dyspnea, unspecified (principal) | CPT/HCPCS: 71046 ==

== ENCOUNTER 2022-02-02 10:31 | Outpatient (CLI) | payer OTHER | END 2022-02-02 10:32 | disposition home or self-care (01) | LOC: RAD 10:31 | PROVIDERS: ATTEND Internal Medicine Critical Care Medicine | DX: R06.00 Dyspnea, unspecified (principal); J18.1 Lobar pneumonia, unspecified organism; A15.0 Tuberculosis of lung | CPT/HCPCS: 71046 ==

== ENCOUNTER 2022-02-25 10:53 | Outpatient (CLI) | payer OTHER | END 2022-02-25 10:54 | disposition home or self-care (01) | LOC: RAD 10:53 | PROVIDERS: ATTEND Internal Medicine Critical Care Medicine | DX: R06.00 Dyspnea, unspecified (principal); J98.4 Other disorders of lung; J81.1 Chronic pulmonary edema | CPT/HCPCS: 71046 ==

== ENCOUNTER 2022-08-11 09:03 | Outpatient (CLI) | payer OTHER | END 2022-08-11 09:04 | disposition home or self-care (01) | LOC: RAD 09:03 | PROVIDERS: ATTEND Internal Medicine Critical Care Medicine | DX: R06.00 Dyspnea, unspecified (principal) | CPT/HCPCS: 71046 ==

== ENCOUNTER 2023-02-03 10:39 | Outpatient (CLI) | payer OTHER | END 2023-02-03 10:40 | disposition home or self-care (01) | LOC: RAD 10:39 | PROVIDERS: ATTEND Internal Medicine Critical Care Medicine | DX: R06.00 Dyspnea, unspecified (principal) | CPT/HCPCS: 71046 ==

== ENCOUNTER 2023-08-16 10:30 | Outpatient (CLI) | payer BC | END 2023-08-16 10:31 | disposition home or self-care (01) | LOC: RAD 10:30 | PROVIDERS: ATTEND Internal Medicine Critical Care Medicine | DX: R06.00 Dyspnea, unspecified (principal); R91.8 Other nonspecific abnormal finding of lung field | CPT/HCPCS: 71046 ==